=== PATIENT | male | born 1950 | race Caucasian/White ===

== ENCOUNTER → 2016-07-24 09:33 | Outpatient (CLI) | payer MEDICARE, BC ==
[2013-02-18 07:36] VITALS: BMI 31.3
[~2016-07-24 09:33] MED LIST: ASPIRIN325 MG PO; AXIRON30 MG/1.5 INJ; BYSTOLIC5 MG PO; K-DUR20 MEQ PO; LASIX20 MG PO; LEVITRA20 MG PO; NORCO 10/325 TA1 TA1 PO; NORVASC5 MG PO; PRILOSEC20 MG PO; RYTHMOL225 MG PO; SLOW FE142 MG PO; VITAMIN B-121000 MCG PO; ZESTRIL40 MG PO; ZOCOR20 MG PO
== END | disposition home or self-care (01) ==
LOC: D.RT 09:33
DX: R06.00 Dyspnea, unspecified (principal)

== ENCOUNTER → 2018-09-10 07:53 | Outpatient (CLI) | payer MEDICARE, BC ==
[2013-02-18 07:36] VITALS: BMI 31.3
--- NOTE | 2018-09-11 14:58 | EC ---
PATIENT:BRIGITTE DICK DATE OF SERVICE: 09/10/18 SEX: M MEDICAL RECORD: [id number] DATE OF : 48 LOCATION:[facility] AGE OF PATIENT: 68 ADMISSION DATE: 09/10/18 REFERRING PHYSICIAN: INTERPRETING PHYSICIAN: DONNA RAMIREZ MD ECHOCARDIOGRAM REPORT ECHO CHARGES 4 ECHO COMPLETE Date: 09/10/18 CLINICAL DIAGNOSIS: AVR H/O A-FIB/HTN ECHOCARDIOGRAPHIC MEASUREMENTS (adult normal given) AC root (d.<3.7cm) 3.9 cm LV Septum d (<1.2 cm> 2.1 cm Valve Excursion 0.8 cm LV Septum (systole) 2.6 cm Left Atria (s.<4.0cm> 6.5 cm LVPW d(<1.2cm) 1.8 cm RV (d.<2.3cm) 2.9 cm LVPW (sytole) 2.4 cm LV diastole(<5.6CM) 5.9 cm MV E-F(>70mm/sec) cm LV systole 4.3 cm LVOT Diameter 2.3 cm MV exc.(>10mm) cm Est.ejection fraction (50-75%) % DOPPLER: LVIT cm/sec A 55.0 cm/sec E 104 cm/sec LA cm/sec RVSP 69.0 mmHg LVOT 68.0 cm/sec AOP1/2T m/s Asc. Ao 261 cm/sec RVOT 46.0 cm/sec RA cm/sec PA 84.0 cm/sec AV Gradient Peak 27.2 mmHg AV Mean 15.1 mmHg AV Area 1.2 cm MV Gradient Peak 5.4 mmHg MV Mean 1.5 mmHg MV Area cm COMMENTS: OP - HC Formula Checker: 1 EFRAIN JUANCHO Cruller Maker Machine: 1 Dr. Ramirez TAPE# PACS Pericardial Effusion N DATE OF SERVICE: ECHOCARDIOGRAM FINDINGS: 1. Left ventricular chamber size is mildly dilated. Left ventricular systolic function is lower limits of normal at 45% to 50%. 2. Left atrium is enlarged at 6.5 cm. Right atrium and right ventricle chamber sizes are as well mildly dilated. 3. Valvular structures: Aortic valve was replaced with a tissue prosthesis ECHOCARDIOGRAM REPORT [id number] BRIGITTE DICK with normal structure and function in this position. 4. Doppler interrogation reveals [id number] mitral regurgitation, moderate tricuspid regurgitation, no other valvular insufficiency or stenosis. Pulmonary systolic pressure is elevated estimated at 69 mmHg. 5. No evidence of pericardial effusion or left ventricular thrombus. TRANSINT:[id number] Voice Confirmation ID: [id number] DOCUMENT ID: [id number] DONNA RAMIREZ MD at 1458 CC: [id number] DICTATION DATE: 09/11/1810 FEED MANAGER: 09/11/18 0942 DEP CLI 09/10/[address] [address]
== END | disposition home or self-care (01) ==
LOC: D.HCCARDIO 07:53
PROVIDERS: ATTEND Internal Medicine Interventional Cardiology
DX: I34.0 Nonrheumatic mitral (valve) insufficiency (principal)

== ENCOUNTER 2019-04-14 09:54 | Outpatient (CLI) | payer MEDICARE, BC ==
[~2019-04-14] VITALS: Ht 190.5 cm; Wt 108.2 kg
--- NOTE | ~2019-04-14 | HEMODYNAMI ---
PATIENT:BRIGITTE DICK MEDICAL RECORD: [id number] : 48 LOCATION:D.CAT ADMISSION DATE: 04/14/19 Generatedon:04/14/201912:54 Patient name: BRIGITTE DICK Patient #: [id number] SSN: DO B: 1950 Date of study: 04/14/2019 Page: Of Hemodynamic Procedure Report Patient Data Patient Demographics Procedure consent was obtained First Name: BRIGITTE Gender: Male Last Name: MAYELIN : 1950 Middle Initial: M Age: 68 year(s) Patient #: [id number] Race: Unknown Additional ID: [id number] Contact details [address]: [address] [place] [address] State: [place] City: [place] Zip code: [address] Admission Admission Data Admission Date: 04/14/2019 Admission Time: 9:54 Procedure Procedure Types Cath Procedure Diagnostic Procedure Cardioversion External Procedure Description Procedure Date Procedure Date: 04/14/2019 Procedure Start Time: 12:45 Procedure End Time: 12:50 Procedure Staff Name Function Bryan Ramirez MD Performing Physician Brody Rizzo RT Monitor Sally Bedoya RN Nurse Keyonna Quinonez CRNA Additional personnel Procedure Data Cath Procedure Fluoroscopy Diagnostic fluoroscopy Total fluoroscopy Time: 0 time: 0 min min Diagnostic fluoroscopy Total fluoroscopy dose: 0 dose: 0 mGy mGy Estimated blood loss: 0 ml Procedure Complications No complications Procedure Medications Medication Administration Route Dosage Oxygen etCO2 Nasal cannula 2 l/min Refer to Anesthesia Notes for Sedation Medications Hemodynamics Rest Pre Cath Intra NCS Post Cath Vital Signs Time Heart Resp SPO2 etCO2 NIBP (mmHg) Rhythm Pain Sedation Rate (ipm) (%) (mmHg) Status Level (bpm) 12:31:44 79 24 95 159/112(129) NSR (Missing) 10(A) 12:37:03 76 27 94 148/121(136) NSR (Missing) 10(A) 12:41:13 71 25 98 154/118(130) NSR (Missing) 10(A) 12:46:10 65 47 93 17.3 143/99(124) NSR (Missing) 9(A) 12:48:33 67 30 95 26.3 141/104(122) NSR (Missing) 10(A) 12:52:29 16.5 No Cuff NSR (Missing) 10(A) Medications Time Medication Route Dose Verified Delivered Reason Notes Effective ness by by 12:42:22 Oxygen etCO2 2 Bryan Zavala used for Nasal l/min Ashley Bedoya RN procedure cannula 12:42:26 Refer to Bryan Zavala Anesthesia Ashley Bedoya RN Notes for Sedation Medications Procedure Log Time Note 12:10:39 Sally Bedoya RN sent for patient. Start room use. 12:23:40 Time tracking: Regular hours (M-F 7:00 - 5:00) 12:23:44 Plan of Care:Hemodynamics will remain stable., Cardiac rhythm will remain stable., Comfort level will be maintained., Respiratory function will remain adequate., Patient/ family verbilizes understanding of procedure., Procedure tolerated without complication., Recovers from procedure without complications.. 12:25:56 Patient arrived from Pre/Post Procedure Room to [facility] 3. Patient remains on bed/stretcher for procedure. 12:25:59 Signed procedure consent form obtained from patient. 12:26:00 Warm blankets applied, and alfie hugger turned on for patient comfort. 12:26:01 Correct patient and procedure confirmed by team. 12:26:01 ECG and BP/O2 sat monitors applied to patient. 12:30:35 Vital chart was started 12:30:41 Rhythm: atrial fibrillation 12:30:42 Full Disclosure recording started 12:30:50 H&P Date Dictated: 03/31/2019 Within 30 days and on chart., H&P Addendum completed by physician on day of procedure. (MUST COMPLETE FOR ALL OUTPATIENTS). 12:30:51 Pre-procedure instructions explained to patient. 12:30:51 Pre-op teaching completed and patient verbalized understanding. 12:30:54 Family in waiting room. 12:30:55 Patient NPO since Midnight. 12:31:07 Is the patient allergic to Iodine/contrast media? No. 12:31:08 Is patient on blood thinner?Yes 12:31:12 ACC The patient was administered the following blood thiners within the last 24 hours: Xarelto 12:31:20 Patient diabetic? No. 12:31:23 Previous problem with sedation/anesthesia? No ? 12:31:23 Snore? Yes 12:31:25 Sleep apnea? Yes 12:31:26 Deviated septum? No 12:31:26 Opens mouth fully? Yes 12:31:27 Sticks out tongue? Yes 12:31:28 Airway obstruction? No ? 12:31:30 Dentures? No ? 12:31:33 Patient pain scale 0/10 ?. 12:31:37 IV patent on arrival in left antecubital with 0.9% NaCl at [facility]. 12:31:39 Lab results completed and on chart. 12:32:00 Alarms reviewed by Akash Merida. 12:32:08 Quick Combo opened to sterile field. 12:32:15 Quick combo pads placed on patients chest and back. 12:34:53 Keyonna Quinonez CRNA present and monitoring patient for TIVA. 12:42:22 Oxygen 2 l/min etCO2 Nasal cannula was administered by Sally Bedoya RN; used for procedure; Verbal order read back and verified. 12:42:26 Refer to Anesthesia Notes for Sedation Medications was administered by Sally Bedoya RN; ; Verbal order read back and verified. 12:44:43 --------ALL STOP TIME OUT------ 12:44:43 Final Timeout: patient, procedure, and site verified with staff and physician. All members of the team are in agreement. 12:44:52 Fire Safety Assessment: E--There are other possible contributors. 12:45:00 Physical assessment completed. ASA score P 3 - A patient with severe systemic disease as per Bryan Ramirez MD. 12:45:03 Sedation plan: TIVA Medication:Propofol 12:45:21 Procedure started. 12:45:25 Defibrillator synced and charged to 200 Joules. 12:45:37 Shock delivered. 12:45:58 Patient cardioverted to sinus rhythm . 12:46:05 Procedure ended.(Physican Out) 12:46:27 Fluoroscopy time 00.00 minutes. 12:46:29 Fluoroscopy dose: 0 mGy 12:46:29 Flurop Dose total: 0 12:46:30 Dose Area Product 0 mGy/cm. 12:46:45 Post-procedure physical assessment completed. ASA score P 3 - A patient with severe systemic disease as per Bryan Ramirez MD. 12:46:48 Post procedure rhythm: sinus rhythm 12:46:50 Estimated blood loss: 0 ml 12:46:53 Post procedure instruction explained to patient.Patient verbalizes understanding. 12:46:53 Patient needs reinforcement of post procedure teaching. 12:47:11 Procedure and supply charges have been captured, reviewed, submitted and are correct. 12:47:15 Procedure Complication : No complications 12:50:43 Vital chart was stopped 12:50:45 Operative report dictated upon procedure completion. 12:50:46 See physician's report for complete and final results. 12:50:48 Report given to Pre/Post Procedure Room. 12:50:51 Patient transfered to Pre/Post Procedure Room with Stretcher. 12:50:54 Procedure ended. 12:50:54 Full Disclosure recording stopped 12:52:22 End room use (Document Last) Device Usage Item Manufacture Quantity Catalog Hospital Part Current Minimal Lot# / Name Number Charge Number Stock Stock Seri al# Code [employer] 1 [id number] Combo Signature Audit [place] Stage Time Signature Unsigned Intra-Procedure 04/14/2019 Brody Rizzo 12:51:22 PM RT(R) Intra-Procedure 04/14/2019 Sally Bedoya RN 12:52:10 PM Intra-Procedure 04/14/2019 Bryan Ramirez 12:54:02 PM [place] [id number] [place] [address]
[2019-04-14] MEDS ORDERED: FLOMAX0.4 MG PO (10:23)
[2019-04-14] MEDS ORDERED: FLUTICASONE PRO16 GM NASAL (10:24)
[2019-04-14 10:44] VITALS: BP 139/92; Ht 190.5 cm; Wt 108.2 kg
[2019-04-14 10:52] LABS: BASOPHILS 0.1 % (0-2); EOSINOPHILS 0.7 % (0-7); HEMATOCRIT 42.9 % (42.0-54.0); HEMOGLOBIN 13.9 g/dL (13.5-17.5); IMMATURE GRANULOCYTES 0.2 % (0-5); MCH 27.6 pg (26.0-34.0); MCHC 32.4 g/dL (31.0-37.0); MCV 85.3 fL (80.0-100.0); MEAN PLATELET VOLUME 10.2 fL (7.4-10.4); MONOCYTES 10.9 % (2-11); NEUTROPHILS 72.1 % (40-80); RBC 5.03 10x6/uL (4.20-6.10); RDW 17.4 % (11.5-14.5); WBC 9.8 10x3/uL (4.8-10.8)
[2019-04-14 10:53] LABS: PLATELET COUNT 176 10x3/uL (130-400)
[2019-04-14 10:56] LABS: ANION GAP 13.5 mmol/L (8-16); CALCIUM 9.2 mg/dL (8.5-10.1); CREATININE - SERUM 1.5 mg/dL (0.6-1.3); INR 2.39 (0.85-1.17); POTASSIUM - SERUM 4.5 mmol/L (3.5-5.1); PROTIME 25.4 SECONDS (11.6-15.0)
--- NOTE | 2019-04-14 12:55 | NUR ---
PT RECEIVED VIA STRETCHER POST SUCCESFUL CARDIOVERSION. PT AWAKE AND ALERT. IV PATENT INFUSING VIA ORDERS. PT PLACED ON CARDIA MONITORS, O2 ON VIA NC AT 2L. HR NSR RATE 66, BP 138/94, RR 18, O2 SAT 95. PT DENIES PAIN OR DISCOMFORT. SODA GIVEN, S/O AT BEDSIDE. CALL LIGHT IN REACH
--- NOTE | 2019-04-14 13:17 | NUR ---
PT RESTING COMFORTABLY, DENIES PAIN OR DISCOMFORT. TOLERATING PO FLUIDS. HR NSR, RATE 64. CALL LIGHT IN REACH
--- NOTE | 2019-04-14 13:55 | NUR ---
DISCHARGE INSTRUCTIONS REVIEWED W PT AND , BOTH VERBALIZED UNDERSTANDING. IV REMOVED W CATH INTACT, MONITORS REMOVED AND PT UP TO DRESS FOR DISCHARGE.
--- NOTE | 2019-04-14 14:05 | NUR ---
PT DISCHARGED VIA WC TO WAITING IN PRIVATE VEHICLE. PT HAD ALL BELONGINGS AND DISCHARGE PAPERWORK.
--- NOTE | 2019-04-16 13:28 | OP ---
PATIENT NAME: BRIGITTE DICK MEDICAL RECORD: [id number] :48 LOCATION:D.CAT ADMISSION DATE: SURGEON: DONNA MAZARIEGOS MD DATE OF OPERATION: 04/14/2019 PROCEDURE: DC cardioversion. INDICATION: Atrial fibrillation. PROCEDURE IN DETAIL: IV conscious sedation was per anesthesia. Continuous heart rate, O2 saturation, blood pressure monitoring all undertaken, all of which remained stable. He received 1 shock at 200 joules restoring sinus rhythm. OVERALL IMPRESSION: Successful DC cardioversion from atrial fibrillation to sinus rhythm. TRANSINT:[id number] Voice Confirmation ID: [id number] DOCUMENT ID: [id number] DONNA MAZARIEGOS MD at 1328 CC: [id number] DICTATION DATE: 04/14/19 1256 ANALYST GEOCHEMICAL PROSPECTING: 04/14/19 1302 DEP CLI 04/14/19 [facility] [address] [place] [address]
== END 2019-04-14 14:05 | disposition home or self-care (01) ==
LOC: D.CATH 09:54
PROVIDERS: ATTEND Internal Medicine Interventional Cardiology
DX: I48.91 Unspecified atrial fibrillation (principal)

== ENCOUNTER → 2019-04-16 11:09 | Outpatient (CLI) | payer MEDICARE, BC ==
[2019-04-14 10:44] VITALS: BMI 29.8
[~2019-04-16 11:09] MED LIST changes: +FLOMAX0.4 MG PO; +FLUTICASONE PRO16 GM NASAL
== END | disposition home or self-care (01) ==
LOC: D.RAD 11:09
PROVIDERS: ATTEND Nurse Practitioner Family
DX: R05 Cough (principal)

== ENCOUNTER → 2019-09-22 08:26 | Outpatient (CLI) | payer MEDICARE, BC ==
[2019-04-14 10:44] VITALS: BMI 29.8
--- NOTE | ~2019-09-22 | EC ---
PATIENT:BRIGITTE DICK DATE OF SERVICE: 09/22/19 SEX: M MEDICAL RECORD: [id number] DATE OF : [birth year] LOCATION:[facility] AGE OF PATIENT: 69 ADMISSION DATE: 09/22/19 REFERRING PHYSICIAN: INTERPRETING PHYSICIAN: DONNA RAMIREZ MD ECHOCARDIOGRAM REPORT ECHO CHARGES 4 ECHO COMPLETE Date: 09/22/19 CLINICAL DIAGNOSIS: DOSS/SOB/A-FIB/AVR H/O HTN ECHOCARDIOGRAPHIC MEASUREMENTS (adult normal given) AC root (d.<3.7cm) 3.8 cm LV Septum d (<1.2 cm> 1.4 cm Valve Excursion 1.6 cm LV Septum (systole) 1.8 cm Left Atria (s.<4.0cm> 6.5 cm LVPW d(<1.2cm) 1.4 cm RV (d.<2.3cm) 3.5 cm LVPW (sytole) 1.8 cm LV diastole(<5.6CM) 6.4 cm MV E-F(>70mm/sec) cm LV systole 4.9 cm LVOT Diameter 2.3 cm MV exc.(>10mm) cm Est.ejection fraction (50-75%) % DOPPLER: LVIT cm/sec A cm/sec E 128 cm/sec LA cm/sec RVSP 59.0 mmHg LVOT 89.0 cm/sec AOP1/2T m/s Asc. Ao 187 cm/sec RVOT 60.0 cm/sec RA cm/sec PA 78.0 cm/sec AV Gradient Peak 14.0 mmHg AV Mean 6.4 mmHg AV Area 1.7 cm MV Gradient Peak 7.5 mmHg MV Mean 2.4 mmHg MV Area cm COMMENTS: OP - HC Crane Hooker: 1 EFRAIN JUANCHO Laundry Equipment Operator: 1 Dr. Ramirez TAPE# PACS Pericardial Effusion N DATE OF SERVICE: ECHOCARDIOGRAM FINDINGS: 1. Left ventricular chamber size is moderately dilated. Left ventricular systolic function is moderately reduced at 30% to 35%. 2. Left atrium is enlarged at 6.5 cm. Right atrium and right ventricular chamber sizes are as well moderate to severely dilated. 3. Valvular structures: Aortic valve is replaced with tissue prosthesis with ECHOCARDIOGRAM REPORT [id number] BRIGITTE DICK normal structure and function in this position. The remaining valvular structures have normal structure and motion. 4. Doppler interrogation reveals mild mitral regurgitation, moderate tricuspid regurgitation, no other valvular insufficiency or stenosis. Pulmonary systolic pressure is elevated estimated at 59 mmHg. 5. No evidence of pericardial effusion or left ventricular thrombus. TRANSINT:[id number] Voice Confirmation ID: [id number] DOCUMENT ID: [id number] DONNA RAMIREZ MD CC: [id number] DICTATION DATE: 09/27/19 1101 SENIOR BUDGET ANALYST: 09/27/19 1252 DEP CLI 09/22/19 [place] [id number] [place] [id number]
== END | disposition home or self-care (01) ==
LOC: D.HCCECHO 08:26
PROVIDERS: ATTEND Internal Medicine Interventional Cardiology
DX: I25.10 Atherosclerotic heart disease of native coronary artery without angina pectoris (principal)

== ENCOUNTER 2019-10-14 06:27 | Outpatient (CLI) | payer MEDICARE, BC ==
[~2019-10-14] VITALS: Ht 190.5 cm; Wt 113.6 kg
--- NOTE | ~2019-10-14 | HEMODYNAMI ---
PATIENT:BRIGITTE DICK MEDICAL RECORD: [id number] : 48 LOCATION:D.CAT ADMISSION DATE: 10/14/19 Generatedon:10/14/20198:48 Patient name: BRIGITTE DICK Patient #: [id number] SSN: [id number] : 1950 Date of study: 10/14/2019 Page: Of Hemodynamic Procedure Report Patient Data Patient Demographics Procedure consent was obtained First Name: BRIGITTE Gender: Male Last Name: MAYELIN : 1950 Middle Initial: M Age: 69 year(s) Patient #: [id number] Race: SSN: [id number] Additional ID: [id number] Contact details Address: [address] [place] [address] State: [place] City: [place] Zip code: [address] Past Medical History Allergies: No known allergies Admission Admission Data Admission Date: 10/14/2019 Admission Time: 6:27 Arrival Date: 10/14/2019 Arrival Time: 0:00 Admit Source: Other Insurance Payor: Medicare [facility] #: [id number] Height (in.): 75 BSA: 2.41 (m2) Height (cm.): 190.5 BMI: 31.31 (kg/m2) Weight (lbs.): 250.51 Weight (kg.): 113.63 Lab Results Lab Result Date: 10/14/2019 Lab Result Time: 0:00 Biochemistry Name Units Result Min Max BUN mg/dl 25 --(----)-* 7 18 Creatinine mg/dl 1.5 --(----)-* 0.6 1.3 eGFR ml/min 49 *-(----)-- 90 120 NONAFRICAN CBC Name Units Result Min Max Hematocrit % 47 --(-*--)-- 42 54 Hemoglobin g/dl 14.4 --(*---)-- 13.5 17.5 Procedure Procedure Types Cath Procedure Diagnostic Procedure Cardioversion External Procedure Description Procedure Date Procedure Date: 10/14/2019 Procedure Start Time: 8:43 Procedure Staff Name Function Arya Philippe MD Performing Physician Sally Bedoya RN Nurse Julieta Castaneda LOAN CLERK Additional personnel Kary Loaiza RT Monitor Procedure Data Cath Procedure Fluoroscopy Diagnostic fluoroscopy Total fluoroscopy Time: 0 time: 0 min min Diagnostic fluoroscopy Total fluoroscopy dose: 0 dose: 0 mGy mGy Contrast Material Contrast Material Type Amount (ml) Isovue 300 0 Estimated blood loss: 0 ml Procedure Complications No complications Procedure Medications Medication Administration Route Dosage Oxygen etCO2 Nasal cannula 4 l/min Refer to Anesthesia Notes for Sedation Medications Hemodynamics Rest BSA: 2.41 (m2) HGB: 14.4 (g/dl) O2 Consumption: Estimated: 266.61 (ml/min) O2 Consumption indexed: Estimated:110.63 (ml/min/m) Heart Rate: 56 (bpm) Snapshots Pre Cath Intra NCS Post Cath Vital Signs Time Heart Resp SPO2 etCO2 NIBP (mmHg) Rhythm Pain Sedation Rate (ipm) (%) (mmHg) Status Level (bpm) 8:34:05 54 29 99 0 130/76(116) NSR 0 (11) 10(A) , No pain 8:38:30 54 32 100 3.7 122/69(92) NSR 0 (11) 9(A) , No pain 8:42:46 65 25 96 34.7 126/71(90) NSR 0 (11) 9(A) , No pain 8:45:52 68 24 97 27.9 135/76(104) NSR 0 (11) 10(A) , No pain Medications Time Medication Route Dose Verified Delivered Reason Notes Effectiven ess by by 8:37:30 Oxygen etCO2 4 Arya Sally used for Nasal l/min Jose Martin Bedoya RN procedure cannula 8:37:34 Refer to Arya Zavala Anesthesia Jose Martin Bedoya RN Notes for Sedation Medications Procedure Log Time Note 8:26:06 Informed consent obtained and on chart 8:26:36 Patient allergic to No known allergies 8:27:45 Arrival Date: 10/14/2019 12:00:00 AM 8:27:46 Admit Source: Other 8:27:49 Insurance Payor : Medicare 8:28:51 Lab Result : BUN 25 mg/dl 8:28:51 Lab Result : Hematocrit 47 % 8:28:51 Lab Result : eGFR NONAFRICAN 49 ml/min 8:28:51 Lab Result : Creatinine 1.5 mg/dl 8:28:51 Lab Result : Hemoglobin 14.4 g/dl 8:28:55 Patient Height : 75 inches 8:29:00 Patient Weight : 250.51 lbs 8:29:35 Procedure Status Cardioversion. 8:29:46 Sally Bedoya RN sent for patient. Start room use. 8:29:48 Time tracking: Regular hours (M-F 7:00 - 5:00) 8:29:52 Plan of Care:Hemodynamics will remain stable., Cardiac rhythm will remain stable., Comfort level will be maintained., Respiratory function will remain adequate., Patient/ family verbilizes understanding of procedure., Procedure tolerated without complication., Recovers from procedure without complications.. 8:30:35 H&P Date Dictated: 10/07/2019 Within 30 days and on chart.. 8:30:36 Pre-procedure instructions explained to patient. 8:30:37 Pre-op teaching completed and patient verbalized understanding. 8:30:39 Family unavailable. 8:30:41 Patient NPO since Midnight. 8:31:02 Lab results completed and on chart. 8:31:05 Stress Test: no; N/A ? 8:31:15 Alarms reviewed by R. N. 8:31:16 Sharps counted by scrub and verified by R.N. 8:31:19 Julieta Castaneda CRNA present and monitoring patient for TIVA. 8:31:44 Patient received from Pre/Post Procedure Room to CCL 1 Alert and oriented. Tansferred to table in Supine position. 8:31:48 ----Pre-sedation anethsthesia assessment.---- 8:31:51 Previous problem with sedation/anesthesia? No ? 8:31:52 Snore? Yes 8:31:53 Sleep apnea? Yes 8:31:54 Deviated septum? No 8:31:55 Opens mouth fully? Yes 8:31:57 Sticks out tongue? Yes 8:32:13 Airway obstruction? No ? 8:32:14 Dentures? No ? 8:32:20 Is the patient allergic to Iodine/contrast media? No. 8:32:22 Was the patient premedicated? N/A 8:32:25 Is patient on blood thinner?No 8:32:28 If diabetic: On Metformin? No 8:32:32 Patient diabetic? No. 8:32:43 Patient pain scale 0/10 ?. 8:32:52 IV patent on arrival in left antecubital with 0.9% NaCl at KVO. 8:33:19 Quick combo pads placed on patients chest and back. 8:33:23 Defibrillator synced and charged to 200 Joules. 8:34:51 ECG and BP/O2 sat monitors applied to patient. 8:34:52 Vital chart was started 8:34:54 Baseline sample Acquired. 8:34:58 Rhythm: atrial fibrillation 8:35:00 Full Disclosure recording started 8:35:06 Physician arrived 8:35:06 --------ALL STOP TIME OUT------ 8:35:07 Final Timeout: patient, procedure, and site verified with staff and physician. All members of the team are in agreement. 8:35:21 Fire Safety Assessment: A--An alcohol-based skin anteseptic being used preoperatively., C--Open oxygen or nitrous oxide is being used., D--An ESU, laser, or fiber-optic light is being used., E--There are other possible contributors. 8:35:24 Physical assessment completed. ASA score P 2 - A patient with mild systemic disease as per Arya Philippe MD. 8:35:28 Sedation plan: IV Moderate Sedation Medication:Versed, Fentanyl 8:35:30 Procedure started. 8:37:30 Oxygen 4 l/min etCO2 Nasal cannula was administered by Sally Bedoya RN; used for procedure; Verbal order read back and verified. 8:37:34 Refer to Anesthesia Notes for Sedation Medications was administered by Sally Bedoya RN; ; Verbal order read back and verified. 8:38:39 Shock delivered. 8:38:57 Patient cardioverted to sinus rhythm . 8:39:57 Quick Combo opened to sterile field. 8:40:31 Procedure ended.(Physican Out) 8:41:17 Fluoroscopy time 00.00 minutes. 8:41:18 Fluoroscopy dose: 0 mGy 8:41:18 Flurop Dose total: 0 8:41:24 Dose Area Product 0 mGy/cm. 8:41:27 Contrast amount:Isovue 300 0ml. 8:41:30 Sharps counted by scrub and verified by R.N. 8:41:31 Post Procedure Pulses reassessed and unchanged 8:41:35 Post procedure rhythm: sinus rhythm 8:41:38 Estimated blood loss: 0 ml 8:41:40 Post procedure instruction explained to patient.Patient verbalizes understanding. 8:41:41 Patient needs reinforcement of post procedure teaching. 8:41:47 Procedure and supply charges have been captured, reviewed, submitted and are correct. 8:41:52 Procedure Complication : No complications 8:41:54 Vital chart was stopped 8:41:56 Operative report dictated upon procedure completion. 8:41:57 See physician's report for complete and final results. 8:41:59 Report given to Pre/Post Procedure Room. 8:42:02 Patient transfered to Pre/Post Procedure Room with Stretcher. 8:42:16 End room use (Document Last) Device Usage Item Manufacture Quantity Catalog Hospital Part Current Minimal Lot# / Name Number Charge Number Stock Stock Dexter al# Code [employer] 1 [id number] Combo Signature Audit Lucas Stage Time Signature Unsigned Intra-Procedure 10/14/2019 Kary Loaiza 8:46:54 AM RT(R) Intra-Procedure 10/14/2019 Sally Bedoya RN 8:47:33 AM Intra-Procedure 10/14/2019 Arya Philippe MD 8:48:57 AM [facility] [address] [place] [address]
[2019-10-14] MEDS ORDERED: VIAGRA100 MG PO (07:04)
[2019-10-14 07:34] VITALS: BP 114/80; Ht 190.5 cm; Wt 113.6 kg
[2019-10-14 07:44] LABS: BASOPHILS 0.1 % (0-2); EOSINOPHILS 2.5 % (0-7); HEMOGLOBIN 14.4 g/dL (13.5-17.5); IMMATURE GRANULOCYTES 0.4 % (0-5); LYMPHOCYTES 27.9 % (15-50); MCH 26.7 pg (26.0-34.0); MCHC 30.6 g/dL (31.0-37.0); MEAN PLATELET VOLUME 9.6 fL (7.4-10.4); MONOCYTES 13.6 % (2-11); NEUTROPHILS 55.5 % (40-80); RDW 18.3 % (11.5-14.5); WBC 9.4 10x3/uL (4.8-10.8)
[2019-10-14] MEDS ORDERED: SYNTHROID25 MCG PO (07:47)
[2019-10-14 07:54] LABS: PLATELET COUNT 265 10x3/uL (130-400)
[2019-10-14 07:57] LABS: ANION GAP 9.1 mmol/L (8-16); CALCIUM 8.4 mg/dL (8.5-10.1); CARBON DIOXIDE 29.1 mmol/L (21.0-32.0); CREATININE - SERUM 1.5 mg/dL (0.6-1.3); POTASSIUM - SERUM 4.2 mmol/L (3.5-5.1)
[2019-10-14 08:07] LABS: INR 1.8 (0.85-1.17); PROTIME 20.6 SECONDS (11.6-15.0)
--- NOTE | 2019-10-14 08:50 | NUR ---
PT RECEIVED BACK TO ROOM 5 POST CARDIOVERSION FOR RECOVERY. PT PLACED ON CARDIAC MONITORS, HR NSR RATE 61, BP 115/70, RR 14 SAT 97 ON 2L/NC. PT DENIES PAIN OR DISCOMFORT. SMALL RED AREA IN MIDDLE OF CHEST FROM CARDIOVERSION. IV PATENT INFUSING VIA L ARM PER ORDERS.
--- NOTE | 2019-10-14 09:15 | NUR ---
PT RESTING W/O COMPLAINTS. HR REMAINS IN SR AT 61, BP 116/74, RR 20, SAT 97. PT DENIES PAIN OR DISCOMFORT. OFFERED SANDWICH DECLINES AT THIS TIME. PT DENIES OTHER NEEDS. CALL LIGHT IN REACH
[2019-10-14] MEDS ORDERED: XARELTO15 MG PO (09:17)
--- NOTE | 2019-10-14 09:45 | NUR ---
DISCHARGE INSTRUCTIONS REVIEWED W PT, HE VERBALIZED UNDERSTANDING. IV REMOVED W CATH INTACT, MONITORS REMOVED AND PT UP TO DRESS FOR DISCHARGE. HR REMAINS NSR.
--- NOTE | 2019-10-14 09:55 | NUR ---
PT AMBULATED TO BR, VOIDING W/O DIFFICULITY. 1000 PT DISCHARGED VIA WC TO WAITING IN PRIVATE VEHICLE. PT HAD ALL BELONGINGS AND DISCHARGE PAPERWORK IN HAND.
== END 2019-10-14 10:00 | disposition home or self-care (01) ==
LOC: D.CATH 06:27
PROVIDERS: ATTEND Internal Medicine Cardiovascular Disease
DX: I48.91 Unspecified atrial fibrillation (principal); E78.5 Hyperlipidemia, unspecified; I10 Essential (primary) hypertension; I42.9 Cardiomyopathy, unspecified; I38 Endocarditis, valve unspecified

== ENCOUNTER → 2020-01-12 08:38 | Outpatient (CLI) | payer MEDICARE, BC ==
[2019-10-14 07:34] VITALS: BMI 31.3
[~2020-01-12 08:38] MED LIST changes: +SYNTHROID25 MCG PO; +VIAGRA100 MG PO; +XARELTO15 MG PO
== END | disposition home or self-care (01) ==
LOC: D.HCCECHO 08:38
PROVIDERS: ATTEND Internal Medicine Cardiovascular Disease
DX: I25.10 Atherosclerotic heart disease of native coronary artery without angina pectoris (principal)